=== PATIENT | male | born 1995 | race Caucasian/White ===

== ENCOUNTER 2016-10-10 13:20 | Emergency (ER) | payer MEDICAID ==
[2016-10-10] MEDS ORDERED: OXYCODONE-ACETAMINOPHEN 5-325 MG TABLET PO ONE (14:02)
--- NOTE | 2016-10-10 14:04 | ER Document Report ---
ED Medical Screen (RME) - General Chief Complaint: Cat Bite Stated Complaint: CAT BITE Notes: 21-year-old male tried to break up to straight cat's that were fighting last night got bit on his right hand. There are puncture wounds over the dorsal first webspace and dorsal first MCP joint. There are also superficial lacerations on the volar ulnar aspect of the base of the thumb. The hand at the punctures is swollen, red and painful. Reports his tetanus status was updated in 2013. I have greeted and performed a rapid initial assessment of this patient. A comprehensive ED assessment and evaluation of the patient, analysis of test results and completion of the medical decision making process will be conducted by additional ED providers. TRAVEL OUTSIDE OF THE [place] IN LAST 30 DAYS: No - Related Data Allergies/Adverse Reactions: cephalexin monohydrate [From Keflex] Allergy (Intermediate, Verified 10/10/16 13 :33) Hives clindamycin HCl [From Cleocin] Allergy (Intermediate, Verified 10/10/16 13:33) Hives clindamycin palmitate HCl [From Cleocin] Allergy (Intermediate, Verified 13:33) Hives clindamycin phosphate [From Cleocin] Allergy (Intermediate, Verified 10/10/16 13 :33) Hives hydromorphone HCl [From Dilaudid] Allergy (Verified 10/10/16 13:33) Home Medications: Current Home Medications Topiramate [Topiramate] 150 mg PO QHS 10/10/16 [History] Ziprasidone HCl [Geodon] 240 mg PO QHS 10/10/16 [History] Past Medical History - Past Medical History Cardiac Medical History: Denies: Hx Coronary Artery Disease, Hx Heart Attack, Hx Hypertension Pulmonary Medical History: Reports: Hx Asthma - INHALER ALBUTEROL Denies: Hx Bronchitis, Hx COPD, Hx Pneumonia Neurological Medical History: Reports: Hx Migraine. Denies: Hx Cerebrovascular Accident, Hx Seizures Renal/ Medical History: Denies: Hx Peritoneal Dialysis Musculoskeltal Medical History: Denies Hx Arthritis Psychiatric Medical History: Reports: Hx Attention Deficit Hyperactivity Disorder, Hx Bipolar Disorder, Hx Depression Past Surgical History: Reports: Hx Thyroid Surgery - radioactive ablation - Immunizations Hx Diphtheria, Pertussis, Tetanus Vaccination: Yes Physical Exam - Vital signs Vitals: Temp Pulse Resp BP Pulse Ox 98.1 F 78 18 147/71 H 99 04/21/17 13:33 10/10/16 13:33 10/10/16 13:33 10/10/16 13:33 10/10/16 13:33 Course - Vital Signs Vital signs: Temp Pulse Resp BP Pulse Ox 98.1 F 78 18 147/71 H 99 10/10/16 13:33 10/10/16 13:33 10/10/16 13:33 10/10/16 13:33 10/10/16 13:33
[2016-10-10 14:25] LABS: ABSOLUTE BASOPHILS # (AUTO) 0.1 10^3/uL (0.0-0.2); ABSOLUTE EOSINOPHILS # (AUTO) 0.1 10^3/uL (0.0-0.6); ABSOLUTE MONOCYTES (AUTO) 0.8 10^3/uL (0.1-1.4); ABSOLUTE NEUT (AUTO) 10.1 10^3/uL (1.7-8.2); BASOPHILS % (AUTO) 0.4 % (0-2); EOSINOPHILS % (AUTO) 0.8 % (0-6); HEMATOCRIT 41.3 % (37.9-51.0); HGB HCT DIFFERENCE 0.7; LYMPHOCYTES % (AUTO) 15.5 % (13-45); MEAN CORPUSCULAR HEMOGLOBIN 28.3 pg (27.0-33.4); MEAN CORPUSCULAR VOLUME 83 fl (80-97); MONOCYTES % (AUTO) 5.9 % (3-13); RED BLOOD COUNT 4.97 10^6/uL (4.35-5.55); RED CELL DISTRIBUTION WIDTH 13.6 % (11.5-14.0); SEGMENTED NEUTROPHILS % (AUTO) 77.4 % (42-78)
[2016-10-10] MEDS ORDERED: AMPICILLIN SOD/SULBACTAM 3 GM VIAL IV ONE (15:16)
--- NOTE | 2016-10-10 15:31 | ER Document Report ---
ED Animal Bite <ROSENDA DIAZ - Last Filed: 10/10/16 18:39> - General Time seen by provider: 15:25 Mode of Arrival: Ambulatory Information source: Patient TRAVEL OUTSIDE OF THE [place] IN LAST 30 DAYS: No - HPI Location of injury: Other - Right hand web between the first and second finger Severity of injury: Scratched, Bitten Onset: Yesterday Quality of pain: Pressure, Stabbing, Throbbing Pain Level: 5 Severity: Severe Context of attack: "Unprovoked" attack Type of animal: Cat Appearance of animal: Appeared well Animal's immunizations: Unknown Animal control form completed: Yes <PATIENCE CASTELLANOS - Last Filed: 10/10/16 19:08> - General Chief Complaint: Cat Bite Stated Complaint: CAT BITE Notes: 21-year-old male presents to ED for Bite to the wrap of his right hand between his thumb and his for second finger. He has a puncture wound over the dorsum of his webspace and the dorsal of the first MCP joint. He also has multiple cat scratches to the arm from and hand. The hand at the puncture site is very erythematous painful and swollen. He states his tetanus is up-to-date and he is requesting the rabies shots. (PATIENCE CASTELLANOS) - Related Data Allergies/Adverse Reactions: cephalexin monohydrate [From Keflex] Allergy (Intermediate, Verified 10/10/16 13 :33) Hives clindamycin HCl [From Cleocin] Allergy (Intermediate, Verified 10/10/16 13:33) Hives clindamycin palmitate HCl [From Cleocin] Allergy (Intermediate, Verified 13:33) Hives clindamycin phosphate [From Cleocin] Allergy (Intermediate, Verified 10/10/16 13 :33) Hives hydromorphone HCl [From Dilaudid] Allergy (Verified 10/10/16 13:33) Home Medications: Current Home Medications Topiramate [Topiramate] 150 mg PO QHS 10/10/16 [History] Ziprasidone HCl [Geodon] 240 mg PO QHS 10/10/16 [History] Past Medical History - General Information source: Patient - Social History Smoking Status: Never Smoker Chew tobacco use (# tins/day): Yes - one can a day Smoking Education Provided: Yes - less than 2 minutes Frequency of alcohol use: None Drug Abuse: None Occupation: none Lives with: Parents Family History: CAD, COPD, CVA, DM, Hyperlipidemia, Hypertension, Malignancy, Thyroid Disfunction Patient has suicidal ideation: No Patient has homicidal ideation: No - Past Medical History Cardiac Medical History: Reports: None Pulmonary Medical History: Reports: Hx Asthma - INHALER ALBUTEROL EENT Medical History: Reports: None Neurological Medical History: Reports: Hx Migraine Endocrine Medical History: Reports: None Renal/ Medical History: Reports: None Malignancy Medical History: Reports None GI Medical History: Reports: None Musculoskeltal Medical History: Reports None Skin Medical History: Reports Hx Cellulitis Psychiatric Medical History: Reports: Hx Attention Deficit Hyperactivity Disorder, Hx Bipolar Disorder, Hx Depression, Other - 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, explosive anger issues Traumatic Medical History: Reports: None Infectious Medical History: Reports: None Past Surgical History: Reports: Hx Cholecystectomy, Hx Thyroid Surgery - radioactive ablation - Immunizations Hx Diphtheria, Pertussis, Tetanus Vaccination: Yes Hx Pneumococcal Vaccination: 06/22/12 <PATIENCE CASTELLANOS - Last Filed: 10/10/16 19:08> Review of Systems - Review of Systems Constitutional: No symptoms reported EENT: No symptoms reported Cardiovascular: No symptoms reported Respiratory: No symptoms reported Gastrointestinal: No symptoms reported Genitourinary: No symptoms reported Male Genitourinary: No symptoms reported Musculoskeletal: No symptoms reported Skin: Other - Infected right hand, right thumb right web space and right second digit. Hematologic/Lymphatic: No symptoms reported Neurological/Psychological: No symptoms reported -: Yes All other systems reviewed and negative <PATIENCE CASTELLANOS - Last Filed: 10/10/16 19:08> Physical Exam - Vital signs Interpretation: Normal - General General appearance: Appears well, Alert - HEENT Head: Normocephalic, Atraumatic Eyes: Normal Pupils: PERRL - Respiratory Respiratory status: No respiratory distress Chest status: Nontender Breath sounds: Normal Chest palpation: Normal - Cardiovascular Rhythm: Regular Heart sounds: Normal auscultation Murmur: No - Abdominal Inspection: Normal Distension: No distension Bowel sounds: Normal Tenderness: Nontender Organomegaly: No organomegaly - Back Back: Normal, Nontender - Extremities General lower extremity: Normal inspection, Nontender, Normal color, Normal ROM , Normal temperature, Normal weight bearing. No: Sheyla's sign Hand: Tender, No evidence of human bite, No evidence of FB, Swelling, Other - A cat bite to the right hand webspace with inflammation, erythema, and swelling to the right first and second fingers of the webspace between these fingers as well as the dorsal and volar aspects of the hand proximal to these 2 fingers. - Neurological Neuro grossly intact: Yes Cognition: Normal Orientation: AAOx4 Jean [place] Coma Scale Eye Opening: Spontaneous [place] Coma Scale Verbal: Oriented Jean [place] Coma Scale Motor: Obeys Commands [place] Coma Scale Total: 15 Speech: Normal Motor strength normal: LUE, RUE, LLE, RLE Sensory: Normal - Psychological Associated symptoms: Normal affect, Normal mood - Skin Skin Temperature: Warm Skin Moisture: Dry Skin Color: Normal Skin irregularity: other - Cat bites right hand Character of irregularity: Erythematous Irregularity with: Swelling, Tenderness, Warmth, Inflammation, Weeping <PATIENCE CASTELLANOS - Last Filed: 10/10/16 19:08> - Vital signs Vitals: Temp Pulse Resp BP Pulse Ox 98.1 F 78 18 147/71 H 99 10/10/16 13:33 10/10/16 13:33 10/10/16 13:33 10/10/16 13:33 10/10/16 13:33 Course - Laboratory Result Diagrams: 10/10/16 14:12 <ROSENDA DIAZ - Last Filed: 10/10/16 18:39> - Laboratory Result Diagrams: 10/10/16 14:12 - Consults Dr. Yoo Time consulted: 15:38 <PATIENCE CASTELLANOS - Last Filed: 10/10/16 19:08> - Re-evaluation Re-evalutation: 10/10/16 18:39 I evaluated the patient shows significant erythema in the region of the right thenar eminence and the area around the first web space where there are Bites. I briefly used an ultrasound to identify there were no fluid collections noted. He has some decreased range of motion of the right thumb with opposition secondary to pain and swelling. Neurovascularly intact distally. (ROSENDA DIAZ) 10/10/16 18:01 Dr. Yoo was by to see the patient. He stated that the patient could go home on Augmentin as long as he follows up to for his may be injections on day 37 and 14 as has been ordered. He requested that if there is any increase in symptoms on any of these days to please let him know and he will follow up with the patient again. Mother and patient both verbalized understanding of the schedule for his rabies vaccinations. He was treated with Unasyn and Percocet in the emergency room and will be discharged home with a prescription for Augmentin and Percocet. (PATIENCE CASTELLANOS) - Vital Signs Vital signs: Temp Pulse Resp BP Pulse Ox 98.1 F 78 18 147/71 H 99 10/10/16 13:33 10/10/16 13:33 10/10/16 13:33 10/10/16 13:33 10/10/16 13:33 - Laboratory Laboratory results interpreted by me: 10/10/16 14:12 WBC 13.0 H Absolute Neutrophils 10.1 H - Consults Dr. Yoo Reason for consultation: 10/10/16 15:38 A cat bite to the right hand webspace with inflammation or erythema and swelling to the right first and second fingers of the webspace between these fingers as well as the dorsal and volar aspects of the hand proximal to these 2 fingers. (PATIENCE CASTELLANOS) Discharge <ROSENDA DIAZ - Last Filed: 10/10/16 18:39> <PATIENCE CASTELLANOS - Last Filed: 10/10/16 19:08> - Discharge Clinical Impression: Cellulitis of right hand Cat bite of right hand Qualifiers: Encounter type: initial encounter Qualified Code(s): S61.451A - Open bite of right hand, initial encounter Additional Instructions: Animal Bites Animal bites are often heavily contaminated with bacteria. In spite of thorough cleansing and proper treatment, these wounds frequently become infected. Bite wounds of the hands are especially prone to complications. Bites are dressed, if possible. Large wounds may require suturing after internal cleansing. Because of infection risk, some large wounds must remain unstitched. Your doctor is trained to advise you on the best treatment for your bite. Call the doctor at once if the wound becomes red, swollen, warm, increasingly painful, or if it begins to drain. Danger signs also include red streaks up the involved extremity, swollen glands in the groin or under the arm , or fever and chills. The risk of rabies from domestic animals is very low. Bats, sick animals, and wild animals may expose you to rabies. The physician, or the health department, will inform you if you will need to receive the rabies vaccine. CELLULITIS: You have an infection of your skin and underlying soft tissues called cellulitis. This is due to bacteria, which can enter through any break in the skin, or even through an irritated hair follicle. Untreated, cellulitis will usually worsen. Antibiotics are required. Usually, warm packs or warm soaks, and elevation of the infected area are recommended. You should start getting better within 24 to 36 hours. Most infections respond quickly to the right medication. Follow-up care is important, however, to check for abscess (boil) formation, unsuspected foreign body, or resistant infection. If you develop fever, chills, or if the area of infection is becoming rapidly more swollen or painful, call the doctor at once. Augmentin Augmentin is a mixture of amoxicillin and clavulanate. Amoxicillin is a member of the penicillin family. It covers the germs likely to cause ear, bronchial, and urinary infections better than plain penicillin. The addition of clavulanate allows it to cover staph infections of the skin, as well as resistant cases of ear and sinus infections. Your physician has chosen Augmentin for you because of the special nature of your situation. Augmentin is best taken with meals. Nausea after taking the medication is rare, but can occur. Diarrhea can occur, particularly in small children. Vaginal yeast infections, and oral thrush in infants are also common. Contact your physician if these problems occur. Allergy to penicillins is common. If you have had an allergic reaction to any drug of the penicillin family, you should never take any other penicillin. Notify your doctor at once if you develop hives, shortness of breath, swelling, or faintness. Rabies Prophyllaxis Rabies immunization can prevent infection with the rabies virus. This virus is always fatal if it reaches the nervous system. Exposure to an infected animal's saliva requires a series of shots. If you're already immunized, you may need only a booster shot. It's critical for you to follow the exact schedule of immunizations. After the first shot, we give repeat doses in 3 days, 7 days, 14 days, and 28 days. The repeat doses can also be given through the Health Department or by special arrangement with your doctor. Ibuprofen or acetaminophen can be used for aching and swelling at the injection site. Call the doctor or return if you develop increasing pain, fever , chills, or spreading redness, or if you become short of breath or faint. SOAP CLEANSING: Gently wash the wound daily using a mild soap (like Ivory, Phisoderm, Neutrogena). Use warm water, rubbing gently until all debris, ooze, and crusting have been washed from the wound. Allow to dry briefly (about 10 minutes) after cleaning. Repeat this cleansing at least three times a day for the first two days and then once or twice a day. ANTIBIOTIC OINTMENT PROTECTION: Your wounds are such that dressing them is not practical or optional. After cleansing, you should apply a thin coating of antibiotic ointment ( Bacitracin, not Neosporin) to the wounds at least three times daily. This lessens infection risk, and may decrease the amount of scarring. Use a q-tip or dull butter knife, not your finger, to apply this ointment. Any debris or ooze which builds up in the ointment should be gently rubbed off with a sterile gauze pad. Harder crusting may need to be gently scrubbed off with a clean wash cloth with soap and warm water, perhaps applying a warm, wet wash cloth to the wound for ten minutes first. Development of redness, severe itching, or blistering may mean allergy to the ointment. See the doctor. ORAL NARCOTIC MEDICATION: You have been given a prescription for pain control. This medication is a narcotic. It's best taken with food, as nausea can result if taken on an empty stomach. Don't operate machinery or drive within six hours of taking this medication. Do not combine this medicine with alcohol, or with any medication which can cause sedation (such as cold tablets or sleeping pills) unless you get permission from the physician. Narcotics tend to cause constipation. If possible, drink plenty of fluids and eat a diet high in fiber and fruits. Please be aware that prescription narcotics also have the potential for abuse. People become addicted to these medications because of the general sense of wellbeing that they induce. This feeling along with a significant reduction in tension, anxiety, and aggression provides a stimulating seductive quality to these drugs. Once your pain is under control, we encourage you to discard your unused narcotics. FOLLOW-UP CARE: If you have been referred to a physician for follow-up care, call the physician s office for an appointment as you were instructed or within the next two days. If you experience worsening or a significant change in your symptoms, notify the physician immediately or return to the Emergency Department at any time for re-evaluation. Prescriptions: Oxycodone HCl/Acetaminophen [Percocet 5-325 mg Tablet] 1 tab PO Q6HP PRN #15 tablet PRN Reason: Amox Tr/Potassium Clavulanate [Augmentin 875-125 Tablet] 1 tab PO BID 10 Days Forms: Elevated Blood Pressure Referrals: DONNIE NEWTON MD [Primary Care Provider] - Follow up as needed MARZENA YOO DO [ACTIVE STAFF] - Follow up as needed
[2016-10-10] MEDS ORDERED: MORPHINE SULFATE 10 MG/ML INJ IV ONE (15:50)
--- NOTE | 2016-10-10 17:49 | PDOC CONSULTATION ---
History of Present Illness Admission Date/PCP: DONNIE NEWTON MD History of Present Illness: STEFF MONTANO is a 21 year old male who was breaking up a stray cat fight when he inadvertently got bitten on the right hand yesterday evening. Over the past 12+ hours patient has noticed increasing redness pain and swelling. Denies fever chills or sweats. Denies numbness or tingling. No rabies history and vaccine history of the animals is unknown. Current pain 11/29. Past Medical History Cardiac Medical History: Reports: None Denies: Coronary Artery Disease, Myocardial Infarction, Hypertension Pulmonary Medical History: Reports: Asthma - INHALER ALBUTEROL Denies: Bronchitis, Chronic Obstructive Pulmonary Disease (COPD), Pneumonia EENT Medical History: Reports: None Neurological Medical History: Reports: Migraine Denies: Seizures Endocrine Medical History: Reports: None Renal/ Medical History: Reports: None Malignancy Medical History: Reports: None GI Medical History: Reports: None Musculoskeltal Medical History: Reports: None Denies: Arthritis Psychiatric Medical History: Reports: Attention Deficit Hyperactivity Disorder, Bipolar Disorder, Depression, Other - 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, explosive anger issues Traumatic Medical History: Reports: None Hematology: Denies: Anemia Infectious Medical History: Reports: None Past Surgical History Past Surgical History: Reports: Cholecystectomy Social History Lives with: Parents Smoking Status: Never Smoker Frequency of Alcohol Use: None Hx Recreational Drug Use: No Hx Prescription Drug Abuse: No Family History Family History: CAD, COPD, CVA, DM, Hyperlipidemia, Hypertension, Malignancy, Thyroid Disfunction Parental Family History Reviewed: No Children Family History Reviewed: No Sibling(s) Family History Reviewed.: No Medication/Allergy Home Medications: Topiramate [Topiramate] 150 mg PO QHS 10/10/16 Ziprasidone HCl [Geodon] 240 mg PO QHS 10/10/16 Allergies/Adverse Reactions: cephalexin monohydrate [From Keflex] Allergy (Intermediate, Verified 10/10/16 13 :33) Hives clindamycin HCl [From Cleocin] Allergy (Intermediate, Verified 10/10/16 13:33) Hives clindamycin palmitate HCl [From Cleocin] Allergy (Intermediate, Verified 13:33) Hives clindamycin phosphate [From Cleocin] Allergy (Intermediate, Verified 10/10/16 13 :33) Hives hydromorphone HCl [From Dilaudid] Allergy (Verified 10/10/16 13:33) Review of Systems Constitutional: ABSENT: chills, fever(s), headache(s), weight gain, weight loss Eyes: ABSENT: visual disturbances Ears: ABSENT: hearing changes Cardiovascular: ABSENT: chest pain, dyspnea on exertion, edema, orthropnea, palpitations Respiratory: ABSENT: cough, hemoptysis Gastrointestinal: ABSENT: abdominal pain, constipation, diarrhea, hematemesis, hematochezia, nausea, vomiting Genitourinary: ABSENT: dysuria, hematuria Musculoskeletal: PRESENT: as per HPI Integumentary: ABSENT: rash, wounds Neurological: ABSENT: abnormal gait, abnormal speech, confusion, dizziness, focal weakness, syncope Psychiatric: ABSENT: anxiety, depression, homidical ideation, suicidal ideation Endocrine: ABSENT: cold intolerance, heat intolerance, menstrual abnormalities, polydipsia, polyuria Hematologic/Lymphatic: ABSENT: easy bleeding, easy bruising, lymphadenopathy Physical Exam Vital Signs: Temp Pulse Resp BP Pulse Ox 98.1 F 78 18 147/71 H 99 10/10/16 13:33 10/10/16 13:33 10/10/16 13:33 10/10/16 13:33 10/10/16 13:33 Intake & Output 10/09/16 10/10/16 10/11/16 06:59 06:59 06:59 Weight 120.7 kg General appearance: PRESENT: no acute distress, well-developed, well-nourished Head exam: PRESENT: atraumatic, normocephalic Eye exam: PRESENT: conjunctiva pink, EOMI, PERRLA. ABSENT: scleral icterus Ear exam: PRESENT: normal external ear exam Mouth exam: PRESENT: moist, tongue midline, other Teeth exam: PRESENT: poor dentation Neck exam: PRESENT: full ROM. ABSENT: carotid bruit, JVD, lymphadenopathy, thyromegaly Cardiovascular exam: PRESENT: RRR. ABSENT: diastolic murmur, rubs, systolic murmur Pulses: PRESENT: normal dorsalis pedis pul, +2 pedal pulses bilateral Vascular exam: PRESENT: normal capillary refill GI/Abdominal exam: PRESENT: normal bowel sounds, soft. ABSENT: distended, guarding, mass, organolmegaly, rebound, tenderness Rectal exam: PRESENT: deferred Musculoskeletal exam: PRESENT: other - Right hand: Small puncture wound along the volar aspect of the thumb at the level of the A1 tk second puncture wound at the first webspace. Appropriate tenderness to palpation with erythema extending approximately 3 cm in a dorsal direction. Mild erythema along the thenar eminence. No palpable fluctuance to suggest deep thenar abscess. No pain with passive stretch of the thumb. No tenderness along the flexor sheath. No sensory deficits. Cap refill less than 2 seconds. Neurological exam: PRESENT: alert, awake, oriented to person, oriented to place , oriented to time, oriented to situation, CN II-XII grossly intact. ABSENT: motor sensory deficit Psychiatric exam: PRESENT: appropriate affect, normal mood. ABSENT: homicidal ideation, suicidal ideation Skin exam: PRESENT: dry, intact, warm. ABSENT: cyanosis, rash Results Laboratory Results: 10/10/16 14:12 10/10/16 14:12 WBC 13.0 H RBC 4.97 Hgb 14.0 Hct 41.3 MCV 83 MCH 28.3 MCHC 34.0 RDW 13.6 Plt Count 296 Seg Neutrophils % 77.4 Lymphocytes % 15.5 Monocytes % 5.9 Eosinophils % 0.8 Basophils % 0.4 Absolute Neutrophils 10.1 H Absolute Lymphocytes 2.0 Absolute Monocytes 0.8 Absolute Eosinophils 0.1 Absolute Basophils 0.1 Assessment & Plan - Diagnosis (2) Cat bite of right hand Qualifiers: Encounter type: initial encounter Qualified Code(s): S61.451A - Open bite of right hand, initial encounter; W55.01XA - Bitten by cat, initial encounter Is this a current diagnosis for this admission?: YesPlan: On examination patient has findings consistent with cellulitis. There is no evidence of thenar abscess or deep abscess. Also there is no evidence of flexor tenosynovitis of the thumb. However given the contaminated nature of There certainly possibility of worsening that this point since the patient has presented within 24 hours I feel it is reasonable to treat him with one dose of IV Unasyn and Augmentin at home. If he notices worsening he should return to emergency room immediately. Patient is getting regular follow-up for rabies vaccination and will be checked for worsening and improvement during his follow- up visits.
[2016-10-10] MEDS ORDERED: RABIES VACCINE (PCEC)/PF 2.5 UNIT/1 ML KIT IM ONE (18:00)
[2016-10-10] MEDS ORDERED: RABIES IMMUNE GLOBULIN INJ/PF 300 UNIT/2 ML SDV IM ONE (18:30)
[2016-10-10 19:23] VITALS: BP 142/87
== END 2016-10-10 18:40 | disposition home or self-care (01) ==
LOC: ER 13:20
DX: S61.451A Open bite of right hand, initial encounter (principal); L03.113 Cellulitis of right upper limb; W55.01XA Bitten by cat, initial encounter; F17.220 Nicotine dependence, chewing tobacco, uncomplicated; Z20.3 Contact with and (suspected) exposure to rabies; Z88.3 Allergy status to other anti-infective agents; Z90.49 Acquired absence of other specified parts of digestive tract
CPT/HCPCS: 99283; 96372; 90471; 96375; 96365; 36415; 87040; 85025; 90675; 90376; J0295; J2270

== ENCOUNTER 2016-10-11 13:08 | Inpatient (IN) | payer MEDICAID ==
[2016-10-11] MEDS ORDERED: OXYCODONE-ACETAMINOPHEN 5-325 MG TABLET PO ONE ×2 (15:20→19:23)
--- NOTE | 2016-10-11 15:27 | ER Document Report ---
ED General - General Mode of Arrival: Ambulatory Information source: Patient, Parent TRAVEL OUTSIDE OF THE [place] IN LAST 30 DAYS: No - HPI Onset: Yesterday Onset/Duration: Persistent Quality of pain: Achy Severity: Severe Pain Level: 5 Associated symptoms: None Exacerbated by: Denies Relieved by: Denies Similar symptoms previously: Yes Recently seen / treated by doctor: Yes <SUJATA MCCAULEY - Last Filed: 10/11/16 19:24> <ROSENDA DIAZ - Last Filed: 10/11/16 19:34> - General Chief Complaint: Cat Bite Stated Complaint: CAT BITE RIGHT HAND SWELLING Notes: Patient presents today with complaints of right hand pain. Patient was evaluated yesterday in the emergency department post cat bite. He was trying to break up a cat fight. He was evaluated and treated with antibiotics while in the ED, he was also evaluated by Dr. Yoo. He reports he's been taking the antibiotics that he was prescribed. Today the right hand became more swollen painful and warm to touch. He denies fever vomiting diarrhea. (SUJATA MCCAULEY) - Related Data Allergies/Adverse Reactions: cephalexin monohydrate [From Keflex] Allergy (Intermediate, Verified 10/10/16 13 :33) Hives clindamycin HCl [From Cleocin] Allergy (Intermediate, Verified 10/10/16 13:33) Hives clindamycin palmitate HCl [From Cleocin] Allergy (Intermediate, Verified 13:33) Hives clindamycin phosphate [From Cleocin] Allergy (Intermediate, Verified 10/10/16 13 :33) Hives hydromorphone HCl [From Dilaudid] Allergy (Verified 10/10/16 13:33) Past Medical History - General Information source: Patient, Parent - Social History Smoking Status: Unknown if Ever Smoked Cigarette use (# per day): No Frequency of alcohol use: None Drug Abuse: None Lives with: Family Family History: CAD, COPD, CVA, DM, Hyperlipidemia, Hypertension, Malignancy, Thyroid Disfunction Patient has suicidal ideation: No Patient has homicidal ideation: No - Past Medical History Cardiac Medical History: Denies: Hx Coronary Artery Disease, Hx Heart Attack, Hx Hypertension Pulmonary Medical History: Reports: Hx Asthma - INHALER ALBUTEROL Denies: Hx Bronchitis, Hx COPD, Hx Pneumonia Neurological Medical History: Reports: Hx Migraine. Denies: Hx Cerebrovascular Accident, Hx Seizures Renal/ Medical History: Denies: Hx Peritoneal Dialysis Musculoskeltal Medical History: Denies Hx Arthritis Skin Medical History: Reports Hx Cellulitis Psychiatric Medical History: Reports: Hx Attention Deficit Hyperactivity Disorder, Hx Bipolar Disorder, Hx Depression Past Surgical History: Reports: Hx Cholecystectomy, Hx Thyroid Surgery - radioactive ablation - Immunizations Hx Diphtheria, Pertussis, Tetanus Vaccination: Yes Hx Pneumococcal Vaccination: 06/22/12 <SUJTAA MCCAULEY - Last Filed: 10/11/16 19:24> Review of Systems <SUJATA MCCAULEY - Last Filed: 10/11/16 19:24> <ROSENDA DIAZ - Last Filed: 10/11/16 19:34> - Review of Systems Notes: Review HPI for review of systems., All other systems negative (SUJATA MCCAULEY) Physical Exam <SUJATA MCCAULEY - Last Filed: 10/11/16 19:24> <ROSENDA DIAZ - Last Filed: 10/11/16 19:34> - Vital signs Vitals: Temp Pulse Resp BP Pulse Ox 98.3 F 80 16 147/80 H 99 10/11/16 13:32 10/11/16 13:32 10/11/16 13:32 10/11/16 13:32 10/11/16 13:32 - Notes Notes: PHYSICAL EXAMINATION: GENERAL: Nontoxic looking HEAD: Atraumatic, normocephalic. EYES: Pupils equal round extraocular movements intact, sclera anicteric, conjunctiva are normal. ENT: nares patent, Moist mucous membranes. NECK: Normal range of motion, supple without lymphadenopathy LUNGS: CTAB and equal. No wheezes rales or rhonchi. HEART: Regular rate ABDOMEN: Soft, no tenderness. No guarding, no rebound EXTREMITIES: Normal range of motion, no pitting edema. right hand dorsally swollen with warmth, palm with erythema from thumb to half of palm. brisk cap refill NEUROLOGICAL: Cranial nerves grossly intact. Normal sensory/motor exams. PSYCH: Normal mood, normal affect. SKIN: Warm, Dry, normal turgor, no rashes or lesions noted (SUJATA MCCAULEY) Course - Laboratory Result Diagrams: 10/11/16 16:19 10/11/16 16:19 - Diagnostic Test Radiology reviewed: Image reviewed, Reports reviewed - Diagnostic report text EXAM DESCRIPTION: MRI RT UPPER EXTREMITY COMBO COMPLETED DATE/TIME: 2016 5:31 pm REASON FOR STUDY: 9-cat bite, eval abscess COMPARISON: None. TECHNIQUE: Multiplanar imaging of the right hand to include T1-weighted, postcontrast T1-weighted , and T2-weighted images. CONTRAST TYPE AND DOSE: 20 mL Prohance. RENAL FUNCTION: GFR > 60. LIMITATIONS: None. FINDINGS: BONE MARROW: No marrow signal alteration. Specifically no marrow replacement or marrow edema. No evidence for osteomyelitis. No cortical break through. SOFT TISSUES: There is diffuse subcutaneous edema involving the dorsal aspect of the right hand most prominent at the level of the 4th metacarpal head where there is a 9 x 6 x 9 mm rim enhancing fluid collection best seen on series 14, image 17 compatible with a small abscess. OTHER: No other significant finding. TECHNICAL DOCUMENTATION: JOB ID: [id number]- All Rights Reserved MRI/MRI RT UPPER EXTREMITY COMBO IMPRESSION: MR FINDINGS COMPATIBLE WITH CELLULITIS WITH 9 MM SOFT TISSUE ABSCESS COULD DORSAL TO THE 4TH METACARPAL HEAD. NO ACUTE OSSEOUS ABNORMALITY <SUJATA MCCAULEY - Last Filed: 10/11/16 19:24> - Laboratory Result Diagrams: 10/11/16 16:19 10/11/16 16:19 <ROSENDA DIAZ - Last Filed: 10/11/16 19:34> - Re-evaluation Re-evalutation: 10/11/16 15:24 Dr. Yoo on the phone. I updated him on patient's complaints return for increased swelling and pain. He advised MRI with contrast of the hand to evaluate for abscess. 10/11/16 17:54 Dr. Yoo contacted with results of MRI. He will be in to see the patient. Patient and his family updated. 10/11/16 19:21 Dr. yoo here patient will be admitted. Patient and family are aware. (SUJATA MCCAULEY) - Vital Signs Vital signs: Temp Pulse Resp BP Pulse Ox 98.2 F 80 16 152/85 H 99 10/11/16 17:58 10/11/16 17:58 10/11/16 17:58 10/11/16 17:58 10/11/16 17:58 - Laboratory Laboratory results interpreted by me: 10/11/16 16:19 Hgb 13.4 L Discharge <SUJATA MCCAULEY - Last Filed: 10/11/16 19:24> - Discharge Admitting Provider: Dr. Yoo Unit Admitted: Surgical Floor <ROSENDA DIAZ - Last Filed: 10/11/16 19:34> - Discharge Clinical Impression: Right hand pain, Abscess of hand Cat bite Qualifiers: Encounter type: subsequent encounter Qualified Code(s): W55.01XD - Bitten by cat, subsequent encounter Condition: Stable Disposition: ADMITTED INPATIENT Instructions: Animal Bites ([facility]) Additional Instructions: *You have been treated for hand pain and swelling post cat bite *Continue to take medication as prescribed *Monitor the site for signs of infection such as increasing pain, redness, swelling, warmth *Keep the wounds clean *Follow up with Dr Corley this week for a recheck *Follow up for rabies vaccine as scheduled *Return to ED for signs of increasing infection, worsening condition, changes, needs
[2016-10-11 16:34] LABS: ABSOLUTE BASOPHILS # (AUTO) 0.1 10^3/uL (0.0-0.2); ABSOLUTE EOSINOPHILS # (AUTO) 0.2 10^3/uL (0.0-0.6); ABSOLUTE LYMPHOCYTES (AUTO) 2.2 10^3/uL (0.5-4.7); ABSOLUTE MONOCYTES (AUTO) 0.7 10^3/uL (0.1-1.4); ABSOLUTE NEUT (AUTO) 5.9 10^3/uL (1.7-8.2); BASOPHILS % (AUTO) 0.7 % (0-2); EOSINOPHILS % (AUTO) 2.4 % (0-6); HEMATOCRIT 39.7 % (37.9-51.0); HEMOGLOBIN 13.4 g/dL (13.5-17.0); HGB HCT DIFFERENCE 0.5; LYMPHOCYTES % (AUTO) 24.3 % (13-45); MEAN CORPUSCULAR HEMOGLOBIN 28.1 pg (27.0-33.4); MEAN CORPUSCULAR HGB CONC 33.7 g/dL (32.0-36.0); MEAN CORPUSCULAR VOLUME 84 fl (80-97); MONOCYTES % (AUTO) 7.2 % (3-13); RED BLOOD COUNT 4.76 10^6/uL (4.35-5.55); RED CELL DISTRIBUTION WIDTH 13.4 % (11.5-14.0); SEGMENTED NEUTROPHILS % (AUTO) 65.4 % (42-78)
[2016-10-11 16:49] LABS: ALANINE AMINOTRANSFERASE 54 U/L (21-72); ALBUMIN 4.5 g/dL (3.5-5.0); ALKALINE PHOSPHATASE 106 U/L (38-126); ANION GAP 16 (5-19); ASPARTATE AMINO TRANSFERASE 38 U/L (17-59); BILIRUBIN,DIRECT 0.2 mg/dL (0.0-0.4); BILIRUBIN,TOTAL 0.8 mg/dL (0.2-1.3); BLOOD UREA NITROGEN 14 mg/dL (7-20); CALCIUM 9.5 mg/dL (8.4-10.2); CARBON DIOXIDE 23 mmol/L (22-30); CHLORIDE 105 mmol/L (98-107); CREATININE RESULT 1.17 mg/dL (0.52-1.25); GLUCOSE 100 mg/dL (75-110); POTASSIUM 4.4 mmol/L (3.6-5.0); SODIUM 143.8 mmol/L (137-145); TOTAL PROTEIN 7.1 g/dL (6.3-8.2)
[2016-10-11] MEDS ORDERED: AMPICILLIN SOD/SULBACTAM 3 GM VIAL IV ONE (19:20)
[2016-10-11] MEDS ORDERED: MORPHINE SULFATE 10 MG/ML INJ IV PRN (20:06)
[2016-10-11] MEDS ORDERED: ONDANSETRON HCL INJ/PF 4 MG/2 ML SDV IV PRN (20:06)
--- NOTE | 2016-10-11 20:14 | PDOC H&P ---
History of Present Illness Admission Date/PCP: 10/11/16 19:43 History of Present Illness: STEFF MONTANO is a 21 year old male who sustained a cat bite to his right hand on 10/09/16. He was seen and evaluated in the emergency room yesterday and was started on IV Unasyn and sent home on Augmentin. At that time there is no sign or symptoms of abscess he returned emergency room 24 hours later with increasing pain and swelling. He states the pain is more along the back of his hand. Denies fever chills or sweats. Denies numbness or tingling. Has been taking Augmentin as directed. Pain 11/29. Past Medical History Cardiac Medical History: Denies: Coronary Artery Disease, Myocardial Infarction, Hypertension Pulmonary Medical History: Reports: Asthma - INHALER ALBUTEROL Denies: Bronchitis, Chronic Obstructive Pulmonary Disease (COPD), Pneumonia Neurological Medical History: Reports: Migraine Denies: Seizures Musculoskeltal Medical History: Denies: Arthritis Psychiatric Medical History: Reports: Attention Deficit Hyperactivity Disorder, Bipolar Disorder, Depression Hematology: Denies: Anemia Past Surgical History Past Surgical History: Reports: Cholecystectomy Social History Lives with: Family Smoking Status: Current Every Day Smoker - Chewing tobacco Frequency of Alcohol Use: None Hx Recreational Drug Use: No Hx Prescription Drug Abuse: No Family History Family History: CAD, COPD, CVA, DM, Hyperlipidemia, Hypertension, Malignancy, Thyroid Disfunction Parental Family History Reviewed: Yes Children Family History Reviewed: Yes Sibling(s) Family History Reviewed.: No Medication/Allergy Home Medications: Amox Tr/Potassium Clavulanate [Augmentin 875-125 Tablet] 1 tab PO BID 10 Days Oxycodone HCl/Acetaminophen [Percocet 5-325 mg Tablet] 1 tab PO Q6HP PRN #15 tablet 10/10/16 Topiramate [Topiramate] 150 mg PO QHS 10/10/16 Ziprasidone HCl [Geodon] 240 mg PO QHS 10/10/16 Allergies/Adverse Reactions: cephalexin monohydrate [From Keflex] Allergy (Intermediate, Verified 10/10/16 13 :33) Hives clindamycin HCl [From Cleocin] Allergy (Intermediate, Verified 10/10/16 13:33) Hives clindamycin palmitate HCl [From Cleocin] Allergy (Intermediate, Verified 13:33) Hives clindamycin phosphate [From Cleocin] Allergy (Intermediate, Verified 10/10/16 13 :33) Hives hydromorphone HCl [From Dilaudid] Allergy (Verified 10/10/16 13:33) Review of Systems Constitutional: ABSENT: chills, fever(s), headache(s), weight gain, weight loss Eyes: ABSENT: visual disturbances Ears: ABSENT: hearing changes Cardiovascular: ABSENT: chest pain, dyspnea on exertion, edema, orthropnea, palpitations Respiratory: ABSENT: cough, hemoptysis Gastrointestinal: ABSENT: abdominal pain, constipation, diarrhea, hematemesis, hematochezia, nausea, vomiting Genitourinary: ABSENT: dysuria, hematuria Musculoskeletal: PRESENT: as per HPI Integumentary: ABSENT: rash, wounds Neurological: ABSENT: abnormal gait, abnormal speech, confusion, dizziness, focal weakness, syncope Psychiatric: ABSENT: anxiety, depression, homidical ideation, suicidal ideation Endocrine: ABSENT: cold intolerance, heat intolerance, menstrual abnormalities, polydipsia, polyuria Hematologic/Lymphatic: ABSENT: easy bleeding, easy bruising, lymphadenopathy Physical Exam Vital Signs: Temp Pulse Resp BP Pulse Ox 98.2 F 80 16 152/85 H 99 10/11/16 17:58 10/11/16 17:58 10/11/16 17:58 10/11/16 17:58 10/11/16 17:58 General appearance: PRESENT: no acute distress, well-developed, well-nourished Head exam: PRESENT: atraumatic, normocephalic Eye exam: PRESENT: conjunctiva pink, EOMI, PERRLA. ABSENT: scleral icterus Ear exam: PRESENT: normal external ear exam Mouth exam: PRESENT: moist, tongue midline Teeth exam: PRESENT: poor dentation Neck exam: PRESENT: full ROM. ABSENT: carotid bruit, JVD, lymphadenopathy, thyromegaly Respiratory exam: PRESENT: unlabored Cardiovascular exam: PRESENT: RRR. ABSENT: diastolic murmur, rubs, systolic murmur Pulses: PRESENT: normal dorsalis pedis pul Vascular exam: PRESENT: normal capillary refill GI/Abdominal exam: PRESENT: normal bowel sounds, soft. ABSENT: distended, guarding, mass, organolmegaly, rebound, tenderness Rectal exam: PRESENT: deferred Musculoskeletal exam: PRESENT: other - Right hand: Erythema and swelling dorsally along the hand and along first webspace. Maximal point tenderness on the thenar eminence. No tenderness along the flexor sheaths of all digits. Diffuse tenderness dorsally. No discernible palpable fluctuance or abscess appreciated. Patient able to make full composite fist. No pain with passive stretch. No tracking erythema. No tenderness along the dorsum of the wrist. Cap refill less than 2 seconds. Neurological exam: PRESENT: alert, awake, oriented to person, oriented to place , oriented to time, oriented to situation, CN II-XII grossly intact. ABSENT: motor sensory deficit Psychiatric exam: PRESENT: appropriate affect, normal mood. ABSENT: homicidal ideation, suicidal ideation Skin exam: PRESENT: dry, intact, warm. ABSENT: cyanosis, rash Results Impressions: Upper Extremity MRI 10/11/16 15:19 IMPRESSION: MR FINDINGS COMPATIBLE WITH CELLULITIS WITH 9 MM SOFT TISSUE ABSCESS COULD DORSAL TO THE 4TH METACARPAL HEAD. NO ACUTE OSSEOUS ABNORMALITY. Status: Image reviewed by me - I have reviewed patient's MRI which demonstrates diffuse swelling dorsally along the hand with question of abscess along the dorsum of the fourth metacarpal head. No thenar abscess appreciated. Assessment & Plan - Diagnosis (1) Cat bite of right hand Qualifiers: Encounter type: initial encounter Qualified Code(s): S61.451A - Open bite of right hand, initial encounter; W55.01XA - Bitten by cat, initial encounter (2) Cellulitis of right hand Is this a current diagnosis for this admission?: YesPlan: I have reviewed patient's MRI which demonstrates question of abscess along the dorsum of the fourth metacarpal however this is not the area where his bite wounds are. Patient's bite wound drawn the thenar eminence he does have diffuse tenderness but no maximal tenderness over this area of concerning abscess. There is no evidence of thenar abscess thus I have recommended observation patient fails to see improvement we will consider formal irrigation and debridement however I feel with appropriate antibiotics this will likely heal nonsurgically. I have consult the hospitalist for management of his rabies prophylactic treatment.
[2016-10-11] MEDS ORDERED: AMPICILLIN SOD/SULBACTAM 3 GM VIAL IV PRN (20:16)
[2016-10-11] MEDS ORDERED: AMPICILLIN SOD/SULBACTAM 3 GM VIAL ONE (22:20)
[2016-10-11] MEDS ORDERED: ZIPRASIDONE HCL 60 MG CAPSULE PO ONE (22:21)
[2016-10-11] MEDS: TOPIRAMATE 100 MG TABLET PO SCH (22:42)
[2016-10-11] MEDS: ZIPRASIDONE HCL 60 MG CAPSULE PO SCH (22:43)
[2016-10-11] MEDS: AMPICILLIN SODIUM/SULBACTAM NA 3 GM in NORMAL SALINE 100 ML IV SCH (23:10)
[2016-10-12] MEDS ORDERED: AMPICILLIN SOD/SULBACTAM 3 GM VIAL IV SCH
[2016-10-12] MEDS ORDERED: AMPICILLIN SOD/SULBACTAM 3 GM VIAL ONE (04:36)
[2016-10-12 04:44] LABS: ABSOLUTE BASOPHILS # (AUTO) 0.1 10^3/uL (0.0-0.2); ABSOLUTE EOSINOPHILS # (AUTO) 0.2 10^3/uL (0.0-0.6); ABSOLUTE LYMPHOCYTES (AUTO) 2.3 10^3/uL (0.5-4.7); ABSOLUTE MONOCYTES (AUTO) 0.5 10^3/uL (0.1-1.4); ABSOLUTE NEUT (AUTO) 4.7 10^3/uL (1.7-8.2); BASOPHILS % (AUTO) 0.8 % (0-2); EOSINOPHILS % (AUTO) 2.8 % (0-6); HEMATOCRIT 38.4 % (37.9-51.0); HEMOGLOBIN 13.2 g/dL (13.5-17.0); HGB HCT DIFFERENCE 1.2; LYMPHOCYTES % (AUTO) 30.1 % (13-45); MEAN CORPUSCULAR HEMOGLOBIN 28.6 pg (27.0-33.4); MEAN CORPUSCULAR HGB CONC 34.4 g/dL (32.0-36.0); MEAN CORPUSCULAR VOLUME 83 fl (80-97); MONOCYTES % (AUTO) 6.2 % (3-13); RED BLOOD COUNT 4.62 10^6/uL (4.35-5.55); RED CELL DISTRIBUTION WIDTH 13.5 % (11.5-14.0); SEGMENTED NEUTROPHILS % (AUTO) 60.1 % (42-78); WHITE BLOOD COUNT 7.8 10^3/uL (4.0-10.5)
[2016-10-12 06:09] LABS: ERYTHROCYTE SEDIMENTATION RATE 12 mm/hr (0-15)
[2016-10-12] MEDS: AMPICILLIN SODIUM/SULBACTAM NA 3 GM in NORMAL SALINE 100 ML IV SCH ×3 (06:12→18:17)
[2016-10-12] MEDS: OXYCODONE-ACETAMINOPHEN 5-325 MG TABLET PO PRN ×2 (07:43→21:44)
--- NOTE | 2016-10-12 10:23 | PDOC CONSULTATION ---
Consultation Consult Date: 10/12/16 Attending physician:: MARZENA ORELLANA Consult reason:: Rabies prophylaxis management History of Present Illness Admission Date/PCP: 10/11/16 20:02 Patient complains of: Hand pain History of Present Illness: STEFF MONTANO is a 21 year old male who sustained a cat bite to his right hand on 10/09/16. He was seen and evaluated in the emergency room on 07/12/2016, evaluated by Dr. Orellana, and was given IV Unasyn and sent home on Augmentin. The patient was given rabies vaccine and globulin and at that time there is no sign or symptoms of abscess he returned emergency room 24 hours later with increasing pain and swelling. He states the pain is more along the back of his hand. Denies fever chills or sweats. Denies numbness or tingling. Has been taking Augmentin as directed. Pain 11/29. ER provider discussed the case with Dr. Orellana with orthopedics and the patient was admitted to orthopedic service for evaluation and management. Given that the patient does have a medical history of bipolar disorder hospitals have been consult to help with medication management and rabies prophylaxis. Past Medical History Pulmonary Medical History: Reports: Asthma Neurological Medical History: Reports: Migraine Renal/ Medical History: Reports: Chronic Kidney Disease - Followed by Dr. Escobedo Psychiatric Medical History: Reports: Attention Deficit Hyperactivity Disorder, Bipolar Disorder, Depression, Other - Mild mental retardation, explosive anger Past Surgical History Past Surgical History: Reports: Cholecystectomy Social History Information Source: Patient Occupation: Unemployed Lives with: Family Smoking Status: Never Smoker Frequency of Alcohol Use: None Hx Recreational Drug Use: No Hx Prescription Drug Abuse: No - Advance Directive Resuscitation Status: Full Code Surrogate healthcare decision maker:: Mother Family History Family History: CAD, COPD, CVA, DM, Hyperlipidemia, Hypertension, Malignancy, Thyroid Disfunction Parental Family History Reviewed: Yes Children Family History Reviewed: NA Sibling(s) Family History Reviewed.: Yes Medication/Allergy Allergies/Adverse Reactions: cephalexin monohydrate [From Keflex] Allergy (Intermediate, Verified 10/10/16 13 :33) Hives clindamycin HCl [From Cleocin] Allergy (Intermediate, Verified 10/10/16 13:33) Hives clindamycin palmitate HCl [From Cleocin] Allergy (Intermediate, Verified 13:33) Hives clindamycin phosphate [From Cleocin] Allergy (Intermediate, Verified 10/10/16 13 :33) Hives hydromorphone HCl [From Dilaudid] Allergy (Verified 10/10/16 13:33) Review of Systems Constitutional: ABSENT: chills, fever(s), headache(s), weight gain, weight loss Eyes: ABSENT: visual disturbances Ears: ABSENT: hearing changes Cardiovascular: ABSENT: chest pain, dyspnea on exertion, edema, orthropnea, palpitations Respiratory: ABSENT: cough, hemoptysis Gastrointestinal: ABSENT: abdominal pain, constipation, diarrhea, hematemesis, hematochezia, nausea, vomiting Genitourinary: ABSENT: dysuria, hematuria Musculoskeletal: ABSENT: joint swelling Integumentary: PRESENT: erythema, wounds. ABSENT: rash Neurological: ABSENT: abnormal gait, abnormal speech, confusion, dizziness, focal weakness, syncope Psychiatric: ABSENT: anxiety, depression, homidical ideation, suicidal ideation Endocrine: ABSENT: cold intolerance, heat intolerance, polydipsia, polyuria Hematologic/Lymphatic: ABSENT: easy bleeding, easy bruising Physical Exam Vital Signs: Temp Pulse Resp BP Pulse Ox 97.8 F 65 18 133/80 H 100 10/12/16 00:35 10/12/16 07:28 10/12/16 07:28 10/12/16 07:28 10/12/16 07:28 Intake & Output 10/10/16 10/11/16 10/12/16 23:59 23:59 23:59 Intake Total 480 0 Balance 480 0 Weight 120.1 kg General appearance: PRESENT: no acute distress, cooperative, obese, well- developed Head exam: PRESENT: atraumatic, normocephalic Eye exam: PRESENT: conjunctiva pink, EOMI, PERRLA. ABSENT: scleral icterus Ear exam: PRESENT: normal external ear exam Mouth exam: PRESENT: moist, tongue midline Neck exam: ABSENT: carotid bruit, JVD, lymphadenopathy, thyromegaly Respiratory exam: PRESENT: clear to auscultation trinity, symmetrical, unlabored. ABSENT: rales, rhonchi, tachypnea, wheezes Cardiovascular exam: PRESENT: RRR. ABSENT: diastolic murmur, rubs, systolic murmur Pulses: PRESENT: normal dorsalis pedis pul Vascular exam: PRESENT: normal capillary refill GI/Abdominal exam: PRESENT: normal bowel sounds, soft. ABSENT: distended, guarding, mass, organolmegaly, rebound, tenderness Rectal exam: PRESENT: deferred Extremities exam: PRESENT: full ROM. ABSENT: calf tenderness, clubbing, pedal edema Neurological exam: PRESENT: alert, awake, oriented to person, oriented to place , oriented to time, oriented to situation, CN II-XII grossly intact. ABSENT: motor sensory deficit Psychiatric exam: PRESENT: normal mood, unusual affect. ABSENT: homicidal ideation, suicidal ideation Skin exam: PRESENT: abrasion - To the right hand and wrist, dry, erythema, intact, warm. ABSENT: cyanosis, rash Results Laboratory Results: 10/12/16 04:18 10/12/16 10/12/16 04:18 04:18 WBC 7.8 RBC 4.62 Hgb 13.2 L Hct 38.4 MCV 83 MCH 28.6 MCHC 34.4 RDW 13.5 Plt Count 254 Seg Neutrophils % 60.1 Lymphocytes % 30.1 Monocytes % 6.2 Eosinophils % 2.8 Basophils % 0.8 Absolute Neutrophils 4.7 Absolute Lymphocytes 2.3 Absolute Monocytes 0.5 Absolute Eosinophils 0.2 Absolute Basophils 0.1 C-Reactive Protein 38.4 H Impressions: Upper Extremity MRI 10/11/16 15:19 IMPRESSION: MR FINDINGS COMPATIBLE WITH CELLULITIS WITH 9 MM SOFT TISSUE ABSCESS COULD DORSAL TO THE 4TH METACARPAL HEAD. NO ACUTE OSSEOUS ABNORMALITY. Assessment & Plan - Diagnosis (1) Abscess of hand Is this a current diagnosis for this admission?: YesPlan: Management as per orthopedics agree with current antibiotic coverage (2) Cat bite Qualifiers: Encounter type: subsequent encounter Qualified Code(s): W55.01XD - Bitten by cat, subsequent encounter Is this a current diagnosis for this admission?: YesPlan: It's critical for you to follow the exact schedule of immunizations. After the first shot, we give repeat doses in 3 days, 7 days, 14 days, and 28 days. The repeat doses can also be given through the [facility] or by special arrangement with your doctor. Will administer dosage if the patient is here tomorrow if not this is been arranged through the ER. (3) Cat bite of right hand Qualifiers: Encounter type: initial encounter Qualified Code(s): S61.451A - Open bite of right hand, initial encounter; W55.01XA - Bitten by cat, initial encounter (4) Bipolar disorder Qualifiers: Active/Remission status: remission status unspecified Qualified Code (s): F31.9 - Bipolar disorder, unspecified Is this a current diagnosis for this admission?: YesPlan: The patient overall appears stable will continue the patient's home medications. - Time Time Spent: 30 to 50 Minutes Medications reviewed and adjusted accordingly: Yes Anticipated discharge: Home Within: within 24 hours, within 48 hours
--- NOTE | 2016-10-12 12:05 | PDOC PROGRESS REPORT ---
Subjective Progress Note for:: 10/12/16 Subjective:: Patient seen and evaluated on rounds today. He states his pain has improved since last evening. Pain is 3/5. Denies fever chills or sweats. Physical Exam Vital Signs: Temp Pulse Resp BP Pulse Ox 97.8 F 82 18 147/83 H 99 10/12/16 11:13 10/12/16 11:13 10/12/16 11:13 10/12/16 11:13 10/12/16 11:13 Intake & Output 10/11/16 10/12/16 10/13/16 06:59 06:59 06:59 Intake Total 480 Balance 480 Weight 120.1 kg General appearance: PRESENT: no acute distress, well-developed, well-nourished Head exam: PRESENT: atraumatic, normocephalic Eye exam: PRESENT: conjunctiva pink, EOMI, PERRLA. ABSENT: scleral icterus Ear exam: PRESENT: normal external ear exam Mouth exam: PRESENT: moist, tongue midline Neck exam: ABSENT: carotid bruit, JVD, lymphadenopathy, thyromegaly Respiratory exam: PRESENT: unlabored Cardiovascular exam: PRESENT: RRR. ABSENT: diastolic murmur, rubs, systolic murmur Pulses: PRESENT: normal radial pulses Vascular exam: PRESENT: normal capillary refill GI/Abdominal exam: PRESENT: soft. ABSENT: distended, guarding, mass, organolmegaly, rebound, tenderness Rectal exam: PRESENT: deferred Extremities exam: PRESENT: other - Right hand: Significant improvement in patient's dorsal erythema. No palpable fluctuance. No tenderness along the fourth metacarpal. Minimal tenderness along the thenar eminence. No tenderness on the flexor sheath. No tracking erythema. He will fist range of motion. No drainage from bite wounds. Neurological exam: PRESENT: alert, awake, oriented to person, oriented to place , oriented to time, oriented to situation, CN II-XII grossly intact. ABSENT: motor sensory deficit Psychiatric exam: PRESENT: flat affect, normal mood. ABSENT: homicidal ideation , suicidal ideation Skin exam: PRESENT: dry, intact, warm. ABSENT: cyanosis, rash Results Laboratory Results: 10/12/16 04:18 10/12/16 10/12/16 04:18 04:18 WBC 7.8 RBC 4.62 Hgb 13.2 L Hct 38.4 MCV 83 MCH 28.6 MCHC 34.4 RDW 13.5 Plt Count 254 Seg Neutrophils % 60.1 Lymphocytes % 30.1 Monocytes % 6.2 Eosinophils % 2.8 Basophils % 0.8 Absolute Neutrophils 4.7 Absolute Lymphocytes 2.3 Absolute Monocytes 0.5 Absolute Eosinophils 0.2 Absolute Basophils 0.1 C-Reactive Protein 38.4 H Impressions: Upper Extremity MRI 10/11/16 15:19 IMPRESSION: MR FINDINGS COMPATIBLE WITH CELLULITIS WITH 9 MM SOFT TISSUE ABSCESS COULD DORSAL TO THE 4TH METACARPAL HEAD. NO ACUTE OSSEOUS ABNORMALITY. Assessment & Plan - Diagnosis (1) Cat bite of right hand Qualifiers: Encounter type: initial encounter Qualified Code(s): S61.451A - Open bite of right hand, initial encounter; W55.01XA - Bitten by cat, initial encounter (2) Cellulitis of right hand Is this a current diagnosis for this admission?: YesPlan: Patient has seen significant improvement after 12 hours of IV antibiotics. We will continue him on IV Unasyn for another 24 hours with anticipation he will be stable for discharge to home tomorrow if he continues to show improvement. Appreciated hospitalist consultation concerning patient's rabies prophylaxis patient will receive his rabies prophylaxis tomorrow and then will follow-up in the emergency room as scheduled.
[2016-10-12] MEDS: ZIPRASIDONE HCL 60 MG CAPSULE PO SCH (21:44)
[2016-10-12] MEDS: TOPIRAMATE 100 MG TABLET PO SCH (21:44)
[2016-10-12] MEDS ORDERED: (PENDING PHARMACY ID) (Topiramate [Topamax] 150 MG) PO SCH (22:00)
[2016-10-12] MEDS ORDERED: TOPIRAMATE 100 MG TABLET PO SCH (22:00)
[2016-10-12] MEDS ORDERED: ZIPRASIDONE HCL PO SCH (22:00)
[2016-10-12] MEDS ORDERED: ZIPRASIDONE HCL 60 MG CAPSULE PO SCH (22:00)
[2016-10-13] MEDS: AMPICILLIN SODIUM/SULBACTAM NA 3 GM in NORMAL SALINE 100 ML IV SCH ×2 (03:17→06:49)
[2016-10-13] MEDS ORDERED: DIPH/PERTUSS(ACELL)/TETANUS VAC/PF 0.5 ML SYR (>=10YO) IM ONE (03:47)
[2016-10-13 04:46] LABS: ABSOLUTE EOSINOPHILS # (AUTO) 0.3 10^3/uL (0.0-0.6); ABSOLUTE LYMPHOCYTES (AUTO) 2.8 10^3/uL (0.5-4.7); ABSOLUTE MONOCYTES (AUTO) 0.5 10^3/uL (0.1-1.4); ABSOLUTE NEUT (AUTO) 5.6 10^3/uL (1.7-8.2); BASOPHILS % (AUTO) 0.5 % (0-2); EOSINOPHILS % (AUTO) 3.7 % (0-6); HEMATOCRIT 38.7 % (37.9-51.0); HEMOGLOBIN 13.3 g/dL (13.5-17.0); HGB HCT DIFFERENCE 1.2; LYMPHOCYTES % (AUTO) 30.7 % (13-45); MEAN CORPUSCULAR HEMOGLOBIN 28.6 pg (27.0-33.4); MEAN CORPUSCULAR HGB CONC 34.5 g/dL (32.0-36.0); MEAN CORPUSCULAR VOLUME 83 fl (80-97); RED BLOOD COUNT 4.66 10^6/uL (4.35-5.55); RED CELL DISTRIBUTION WIDTH 13.3 % (11.5-14.0); SEGMENTED NEUTROPHILS % (AUTO) 60.1 % (42-78); WHITE BLOOD COUNT 9.2 10^3/uL (4.0-10.5)
[2016-10-13] MEDS: OXYCODONE-ACETAMINOPHEN 5-325 MG TABLET PO PRN (09:39)
[2016-10-13] MEDS ORDERED: RABIES VACCINE (PCEC)/PF 2.5 UNIT/1 ML KIT IM SCH (10:00)
[2016-10-13 10:02] VITALS: BP 121/72
--- NOTE | 2016-10-13 12:21 | PDOC DISCHARGE SUMMARY ---
General - Admit/Disc Date/PCP Admission Date/Primary Care Provider: 10/11/16 20:02 Discharge Date: 10/13/16 - Discharge Diagnosis (2) Cellulitis of right hand Is this a current diagnosis for this admission?: Yes - Additional Information Resuscitation Status: Full Code Discharge Diet: As Tolerated Discharge Activity: Activity As Tolerated Home Medications: Topiramate [Topamax] 150 mg PO QHS 10/12/16 Ziprasidone HCl [Geodon] 240 mg PO QHS 10/12/16 Oxycodone HCl/Acetaminophen [Percocet 5-325 mg Tablet] 1 - 2 tab PO ASDIR PRN # 15 tablet 10/13/16 History of Present Illness History of Present Illness: STEFF MONTANO is a 21 year old male who sustained a cat bite to his right hand on 10/09/16. He was seen and evaluated in the emergency room yesterday and was started on IV Unasyn and sent home on Augmentin. At that time there is no sign or symptoms of abscess he returned emergency room 24 hours later with increasing pain and swelling. He states the pain is more along the back of his hand. Denies fever chills or sweats. Denies numbness or tingling. Has been taking Augmentin as directed. Pain 11/29. Hospital Course Hospital Course: patient was admitted to the hospital under the orthopedic service on 2016. mri was done prior to admission demonstrating extensive cellulitis with questionable superficial abscess. he did not undergo operative intervention and was treated conservatively with iv unasyn for approximately 36 hours and saw significant clinical improvement. on 10/13/2016 patient was deemed orthopedically stable for discharge to home. Physical Exam Vital Signs: Temp Pulse Resp BP Pulse Ox 79 F L 79 18 121/72 100 10/13/16 09:57 10/13/16 09:57 10/13/16 09:57 10/13/16 09:57 10/13/16 09:57 Intake & Output 10/12/16 10/13/16 10/14/16 06:59 06:59 06:59 Intake Total 480 2300 Output Total 5584 Balance 480 -9095 Weight 120.1 kg General appearance: PRESENT: no acute distress, well-developed, well-nourished Head exam: PRESENT: atraumatic, normocephalic Eye exam: PRESENT: conjunctiva pink, EOMI, PERRLA. ABSENT: scleral icterus Ear exam: PRESENT: normal external ear exam Mouth exam: PRESENT: moist, tongue midline Teeth exam: PRESENT: poor dentation Neck exam: PRESENT: full ROM. ABSENT: carotid bruit, JVD, lymphadenopathy, thyromegaly Cardiovascular exam: PRESENT: RRR. ABSENT: diastolic murmur, rubs, systolic murmur Pulses: PRESENT: normal dorsalis pedis pul, +2 pedal pulses bilateral Vascular exam: PRESENT: normal capillary refill GI/Abdominal exam: PRESENT: normal bowel sounds, soft. ABSENT: distended, guarding, mass, organolmegaly, rebound, tenderness Rectal exam: PRESENT: deferred Musculoskeletal exam: PRESENT: other - right hand- no tenderness to palpation of the fourth metacarpal or along the thenar eminence. previous bite wounds healed no evidence of drainage. previous erythema significantly resolved minimal residual swelling. no tenderness on the flexor sheath. patient able to make full composite fist. no sensory deficits. Neurological exam: PRESENT: alert, awake, oriented to person, oriented to place , oriented to time, oriented to situation, CN II-XII grossly intact. ABSENT: motor sensory deficit Psychiatric exam: PRESENT: appropriate affect, normal mood. ABSENT: homicidal ideation, suicidal ideation Skin exam: PRESENT: dry, intact, warm. ABSENT: cyanosis, rash Results Laboratory Results: 10/13/16 04:18 10/13/16 04:18 WBC 9.2 RBC 4.66 Hgb 13.3 L Hct 38.7 MCV 83 MCH 28.6 MCHC 34.5 RDW 13.3 Plt Count 279 Seg Neutrophils % 60.1 Lymphocytes % 30.7 Monocytes % 5.0 Eosinophils % 3.7 Basophils % 0.5 Absolute Neutrophils 5.6 Absolute Lymphocytes 2.8 Absolute Monocytes 0.5 Absolute Eosinophils 0.3 Absolute Basophils 0.0 Impressions: Upper Extremity MRI 10/11/16 15:19 IMPRESSION: MR FINDINGS COMPATIBLE WITH CELLULITIS WITH 9 MM SOFT TISSUE ABSCESS COULD DORSAL TO THE 4TH METACARPAL HEAD. NO ACUTE OSSEOUS ABNORMALITY. Plan Discharge Plan: patient has done well with conservative treatment. at this point he will be discharged home on percocet to take as needed for pain he will restart his augmentin as previously prescribed. he will follow up with the emergency room for rabies prophylactic treatment. patient is to return to emergency days increasing redness swelling or pain of the hand. patient was ready to instructions, understood the above instructions and orthopedic stable to discharge to home.
--- NOTE | 2016-10-13 16:39 | PDOC PROGRESS REPORT ---
Subjective Progress Note for:: 10/13/16 Subjective:: The patient was seen earlier today on rounds. The patient denies any nausea, vomiting, diarrhea, shortness of breath, dizziness, chest pain, heart palpitations, fevers, or chills. The patient has remained afebrile. Blood pressures have been in a good range. When prompted the patient voices no other concerns at this time. Review of systems: The rest of the review of systems is negative. Physical Exam Vital Signs: Temp Pulse Resp BP Pulse Ox 79 F L 79 18 121/72 100 10/13/16 09:57 10/13/16 09:57 10/13/16 09:57 10/13/16 09:57 10/13/16 09:57 Intake & Output 10/11/16 10/12/16 10/13/16 23:59 23:59 23:59 Intake Total 480 1360 940 Output Total 3100 2425 Balance 480 -1740 -1485 Weight 120.1 kg General appearance: PRESENT: no acute distress, cooperative, well-developed, well-nourished Head exam: PRESENT: atraumatic, normocephalic Eye exam: PRESENT: conjunctiva pink, EOMI, PERRLA. ABSENT: scleral icterus Ear exam: PRESENT: normal external ear exam Mouth exam: PRESENT: moist, tongue midline Neck exam: ABSENT: carotid bruit, JVD, lymphadenopathy, thyromegaly Respiratory exam: PRESENT: clear to auscultation trinity. ABSENT: rales, rhonchi, wheezes Cardiovascular exam: PRESENT: RRR. ABSENT: diastolic murmur, rubs, systolic murmur Pulses: PRESENT: normal dorsalis pedis pul Vascular exam: PRESENT: normal capillary refill GI/Abdominal exam: PRESENT: normal bowel sounds, soft. ABSENT: distended, guarding, mass, organolmegaly, rebound, tenderness Rectal exam: PRESENT: deferred Extremities exam: PRESENT: full ROM, other - Hand is much improved. ABSENT: calf tenderness, clubbing, pedal edema Neurological exam: PRESENT: alert, awake, oriented to person, oriented to place , oriented to time, oriented to situation, CN II-XII grossly intact. ABSENT: motor sensory deficit Psychiatric exam: PRESENT: appropriate affect, normal mood. ABSENT: homicidal ideation, suicidal ideation Skin exam: PRESENT: dry, intact, warm. ABSENT: cyanosis, rash Results Laboratory Results: 10/13/16 04:18 10/13/16 04:18 WBC 9.2 RBC 4.66 Hgb 13.3 L Hct 38.7 MCV 83 MCH 28.6 MCHC 34.5 RDW 13.3 Plt Count 279 Seg Neutrophils % 60.1 Lymphocytes % 30.7 Monocytes % 5.0 Eosinophils % 3.7 Basophils % 0.5 Absolute Neutrophils 5.6 Absolute Lymphocytes 2.8 Absolute Monocytes 0.5 Absolute Eosinophils 0.3 Absolute Basophils 0.0 Impressions: Upper Extremity MRI 10/11/16 15:19 IMPRESSION: MR FINDINGS COMPATIBLE WITH CELLULITIS WITH 9 MM SOFT TISSUE ABSCESS COULD DORSAL TO THE 4TH METACARPAL HEAD. NO ACUTE OSSEOUS ABNORMALITY. Assessment & Plan - Diagnosis (1) Abscess of hand Is this a current diagnosis for this admission?: YesPlan: Management as per orthopedics agree with current antibiotic coverage (2) Cat bite Qualifiers: Encounter type: subsequent encounter Qualified Code(s): W55.01XD - Bitten by cat, subsequent encounter Is this a current diagnosis for this admission?: YesPlan: It's critical for you to follow the exact schedule of immunizations. After the first shot, we give repeat doses in 3 days, 7 days, 14 days, and 28 days. The repeat doses can also be given through the [facility] or by special arrangement with your doctor. Will administer dosage today. (3) Cat bite of right hand Qualifiers: Encounter type: initial encounter Qualified Code(s): S61.451A - Open bite of right hand, initial encounter; W55.01XA - Bitten by cat, initial encounter (4) Bipolar disorder Qualifiers: Active/Remission status: remission status unspecified Qualified Code (s): F31.9 - Bipolar disorder, unspecified Is this a current diagnosis for this admission?: YesPlan: The patient overall appears stable will continue the patient's home medications. - Time Time Spent with patient: 25-34 minutes Medications reviewed and adjusted accordingly: Yes
== END 2016-10-13 10:41 | disposition home or self-care (01) | DRG 949 ==
LOC: ER 13:08 → EH 19:43 → UNDOADMIN 19:43 → EH 20:02 → 4N 21:53
PROVIDERS: ADMIT Orthopaedic Surgery; ATTEND Orthopaedic Surgery
PROC: 3E0234Z Introduction of Serum, Toxoid and Vaccine into Muscle, Percutaneous Approach (ICD-10-PCS; principal; 2016-10-13)
DX: S61.451D Open bite of right hand, subsequent encounter (principal); L03.113 Cellulitis of right upper limb; N18.9 Chronic kidney disease, unspecified; J45.909 Unspecified asthma, uncomplicated; G43.909 Migraine, unspecified, not intractable, without status migrainosus; F90.9 Attention-deficit hyperactivity disorder, unspecified type; F31.9 Bipolar disorder, unspecified; W55.01XD Bitten by cat, subsequent encounter; Z23 Encounter for immunization; Z88.1 Allergy status to other antibiotic agents; Z88.8 Allergy status to other drugs, medicaments and biological substances
CPT/HCPCS: 36415; 80053; 85025; 85652; 86140; 87040; 90715; 99285; A9576; J0295; J2270; J3490

== ENCOUNTER → 2017-01-28 | Outpatient (CLI) | payer MEDICAID ==
[2017-01-28 11:41] LABS: ABSOLUTE BASOPHILS # (AUTO) 0.1 10^3/uL (0.0-0.2); ABSOLUTE EOSINOPHILS # (AUTO) 0.2 10^3/uL (0.0-0.6); ABSOLUTE LYMPHOCYTES (AUTO) 2.9 10^3/uL (0.5-4.7); ABSOLUTE MONOCYTES (AUTO) 0.6 10^3/uL (0.1-1.4); ABSOLUTE NEUT (AUTO) 5.6 10^3/uL (1.7-8.2); BASOPHILS % (AUTO) 0.8 % (0-2); EOSINOPHILS % (AUTO) 2.1 % (0-6); HEMATOCRIT 43.3 % (37.9-51.0); HEMOGLOBIN 15.2 g/dL (13.5-17.0); HGB HCT DIFFERENCE 2.3; LYMPHOCYTES % (AUTO) 30.7 % (13-45); MEAN CORPUSCULAR HEMOGLOBIN 29.1 pg (27.0-33.4); MEAN CORPUSCULAR HGB CONC 35.1 g/dL (32.0-36.0); MEAN CORPUSCULAR VOLUME 83 fl (80-97); MONOCYTES % (AUTO) 6.5 % (3-13); RED BLOOD COUNT 5.22 10^6/uL (4.35-5.55); RED CELL DISTRIBUTION WIDTH 13.4 % (11.5-14.0); SEGMENTED NEUTROPHILS % (AUTO) 59.9 % (42-78); WHITE BLOOD COUNT 9.4 10^3/uL (4.0-10.5)
[2017-01-28 11:53] LABS: CHOLESTEROL 163.37 mg/dL (0-200); Direct HDL 34 mg/dL (>40); TRIGLYCERIDES 302 mg/dL (<150)
[2017-01-28 12:04] LABS: DIRECT LDL 104 mg/dL (<100)
[2017-01-28 12:07] LABS: VLDL CHOLESTEROL 60.4 mg/dL (10-31)
== END ==
LOC: OD 10:03
PROVIDERS: ATTEND Nurse Practitioner Psychiatric/Mental Health
DX: F41.1 Generalized anxiety disorder (principal); Z79.899 Other long term (current) drug therapy
CPT/HCPCS: 36415; 80061; 83036; 85025

== ENCOUNTER → 2017-07-13 | Outpatient (CLI) | payer MEDICAID ==
[2017-07-13 11:35] LABS: ABSOLUTE BASOPHILS # (AUTO) 0.1 10^3/uL (0.0-0.2); ABSOLUTE EOSINOPHILS # (AUTO) 0.1 10^3/uL (0.0-0.6); ABSOLUTE LYMPHOCYTES (AUTO) 2.2 10^3/uL (0.5-4.7); ABSOLUTE MONOCYTES (AUTO) 0.5 10^3/uL (0.1-1.4); ABSOLUTE NEUT (AUTO) 7.1 10^3/uL (1.7-8.2); BASOPHILS % (AUTO) 0.7 % (0-2); HEMATOCRIT 46.2 % (37.9-51.0); HEMOGLOBIN 15.7 g/dL (13.5-17.0); LYMPHOCYTES % (AUTO) 22.2 % (13-45); MEAN CORPUSCULAR HEMOGLOBIN 27.5 pg (27.0-33.4); MEAN CORPUSCULAR HGB CONC 33.9 g/dL (32.0-36.0); MEAN CORPUSCULAR VOLUME 81 fl (80-97); MONOCYTES % (AUTO) 5.1 % (3-13); RED CELL DISTRIBUTION WIDTH 13.8 % (11.5-14.0); TOTAL CELLS COUNTED % (AUTO) 100 %
[2017-07-13 11:53] LABS: ALANINE AMINOTRANSFERASE 30 U/L (21-72); ALBUMIN 4.7 g/dL (3.5-5.0); ALKALINE PHOSPHATASE 90 U/L (38-126); ANION GAP 17 (5-19); ASPARTATE AMINO TRANSFERASE 19 U/L (17-59); BILIRUBIN,DIRECT 0.3 mg/dL (0.0-0.4); BILIRUBIN,TOTAL 0.5 mg/dL (0.2-1.3); BLOOD UREA NITROGEN 12 mg/dL (7-20); CALCIUM 10.4 mg/dL (8.4-10.2); CARBON DIOXIDE 21 mmol/L (22-30); CHLORIDE 108 mmol/L (98-107); CHOLESTEROL 152.39 mg/dL (0-200); GLUCOSE 95 mg/dL (75-110); POTASSIUM 4.7 mmol/L (3.6-5.0); SODIUM 146.2 mmol/L (137-145); TOTAL PROTEIN 7.8 g/dL (6.3-8.2); TRIGLYCERIDES 63 mg/dL (<150)
[2017-07-13 12:01] LABS: PLATELET COUNT 291 10^3/uL (150-450)
[2017-07-13 12:04] LABS: DIRECT LDL 109 mg/dL (<100)
[2017-07-13 12:13] LABS: FREE T4 (FREE THYROXINE) 1.42 ng/dL (0.78-2.19)
[2017-07-13 12:28] LABS: THYROID STIMULATING HORMONE 1.01 uIU/mL (0.47-4.68)
== END ==
LOC: OD 10:09
PROVIDERS: ATTEND Nurse Practitioner Psychiatric/Mental Health
DX: F63.81 Intermittent explosive disorder (principal); F41.1 Generalized anxiety disorder; Z79.899 Other long term (current) drug therapy
CPT/HCPCS: 36415; 80053; 80061; 80164; 83036; 84439; 84443; 85025

== ENCOUNTER 2018-07-02 19:10 | Emergency (ER) | payer MEDICAID ==
[2018-07-02] MEDS ORDERED: IBUPROFEN 600 MG TABLET PO ONE (20:08)
--- NOTE | 2018-07-02 20:09 | ER Document Report ---
ED Medical Screen (RME) - General Chief Complaint: Fever Stated Complaint: FEVER Time Seen by Provider: 07/02/18 20:06 TRAVEL OUTSIDE OF THE [place] IN LAST 30 DAYS: No - HPI Notes: 07/02/18 20:08 Patient is a 23-year-old male that presents to the emergency department for chief complaint of fever and cough. Patient started having fevers yesterday. He has been getting Tylenol and ibuprofen. His last dose of Tylenol was at 6:30 PM his last dose of Motrin was at 3:30 PM. Patient is also having a cough. He denies any nausea vomiting or diarrhea. He did not get a flu shot this year. ROS: GENERAL: Fevers CV: Denies chest pain PHYSICAL EXAMINATION: GENERAL: Well-appearing, well-nourished and in no acute distress. HEAD: Atraumatic, normocephalic. EYES: Pupils equal round extraocular movements intact, conjunctiva are normal. ENT: Nares patent NECK: Normal range of motion LUNGS: No respiratory distress Musculoskeletal: Normal range of motion NEUROLOGICAL: Normal speech, normal gait. PSYCH: Normal mood, normal affect. MDM: Patient seen and examined for rapid initial assessment. Vital signs reviewed. A comprehensive ED assessment and evaluation of the patient, analysis of test results and completion of the medical decision making process will be conducted by additional ED providers. - Related Data Allergies/Adverse Reactions: cephalexin monohydrate [From Keflex] Allergy (Intermediate, Verified 10/10/16 13:33) Hives clindamycin HCl [From Cleocin] Allergy (Intermediate, Verified 10/10/16 13:33) Hives hydromorphone HCl [From Dilaudid] Allergy (Verified 10/10/16 13:33) Past Medical History - Past Medical History Cardiac Medical History: Denies: Hx Coronary Artery Disease, Hx Heart Attack, Hx Hypertension Pulmonary Medical History: Reports: Hx Asthma Denies: Hx Bronchitis, Hx COPD, Hx Pneumonia Neurological Medical History: Reports: Hx Migraine. Denies: Hx Cerebrovascular Accident, Hx Seizures Renal/ Medical History: Denies: Hx Peritoneal Dialysis Musculoskeltal Medical History: Denies Hx Arthritis Skin Medical History: Reports Hx Cellulitis Psychiatric Medical History: Reports: Hx Attention Deficit Hyperactivity Disorder, Hx Bipolar Disorder, Hx Depression Past Surgical History: Reports: Hx Cholecystectomy, Hx Thyroid Surgery - radioactive ablation - Immunizations Hx Diphtheria, Pertussis, Tetanus Vaccination: Yes Physical Exam - Vital signs Vitals: Temp Pulse Resp BP Pulse Ox 102.6 F H 123 H 20 176/88 H 99 07/02/18 19:22 07/02/18 19:22 07/02/18 19:22 07/02/18 19:22 07/02/18 19:22 Course - Vital Signs Vital signs: Temp Pulse Resp BP Pulse Ox 102.6 F H 123 H 20 176/88 H 99 07/02/18 19:22 07/02/18 19:22 07/02/18 19:22 07/02/18 19:22 07/02/18 19:22 Doctor's Discharge - Discharge Referrals: TAQUERIA VAZQUEZ NP [Primary Care Provider] - Follow up as needed
--- NOTE | 2018-07-02 20:58 | RADIOLOGY REPORT (SQ) ---
EXAM DESCRIPTION: CHEST SINGLE VIEW COMPLETED DATE/TIME: 07/02/2018 8:50 pm REASON FOR STUDY: cough COMPARISON: 05/20/2016 EXAM PARAMETERS: NUMBER OF VIEWS: One view. TECHNIQUE: Single frontal radiographic view of the chest acquired. RADIATION DOSE: NA LIMITATIONS: None. FINDINGS: LUNGS AND PLEURA: No opacities, masses or pneumothorax. No pleural effusion. MEDIASTINUM AND HILAR STRUCTURES: No masses. Contour normal. HEART AND VASCULAR STRUCTURES: Heart normal in size. Normal vasculature. BONES: No acute findings. HARDWARE: None in the chest. OTHER: No other significant finding. IMPRESSION: NO ACUTE RADIOGRAPHIC FINDING IN THE CHEST. TECHNICAL DOCUMENTATION: JOB ID: [id number] [employer]- All Rights Reserved Reading location - IP/workstation name: [email or web address]
[2018-07-02 21:45] LABS: A TYPE INFLUENZA AG NEGATIVE (NEGATIVE); B INFLUENZA AG NEGATIVE (NEGATIVE)
[2018-07-02] MEDS ORDERED: ACETAMINOPHEN 325 MG TABLET PO ONE (22:08)
--- NOTE | 2018-07-02 22:11 | ER Document Report ---
ED General - General Chief Complaint: Fever Stated Complaint: FEVER Time Seen by Provider: 07/02/18 20:06 Notes: Patient is a 23-year-old male without chronic medical problems presents with 2 days of sore throat, cough and fever. Mother states that she brought the patient to the emergency department today due to the degree of his temperature elevation. He states he felt very warm to the touch, she checked it and found to be 104 F prompting her to bring him to the emergency department. Multiple sick contacts in the home with similar symptoms including the uncle as well as a small child. The patient did not receive an influenza vaccine this year. Patient himself states that he otherwise feels relatively okay. Nothing seems to improve or worsen his symptoms. He has not seen his general physician regarding today's concerns. No history of similar symptoms in the recent past. He denies any headache, neck pain, limited range of neck motion, abdominal pain, vomiting or diarrhea although does note that he has felt somewhat nauseated. TRAVEL OUTSIDE OF THE [place] IN LAST 30 DAYS: No - Related Data Allergies/Adverse Reactions: cephalexin monohydrate [From Keflex] Allergy (Intermediate, Verified 10/10/16 13:33) Hives clindamycin HCl [From Cleocin] Allergy (Intermediate, Verified 10/10/16 13:33) Hives hydromorphone HCl [From Dilaudid] Allergy (Verified 10/10/16 13:33) Past Medical History - General Information source: Patient - Social History Smoking Status: Never Smoker Chew tobacco use (# tins/day): Yes Frequency of alcohol use: None Drug Abuse: None Lives with: Family Family History: CAD, COPD, CVA, DM, Hyperlipidemia, Hypertension, Malignancy, Thyroid Disfunction Patient has suicidal ideation: No Patient has homicidal ideation: No - Past Medical History Cardiac Medical History: Denies: Hx Coronary Artery Disease, Hx Heart Attack, Hx Hypertension Pulmonary Medical History: Reports: Hx Asthma Denies: Hx Bronchitis, Hx COPD, Hx Pneumonia Neurological Medical History: Reports: Hx Migraine. Denies: Hx Cerebrovascular Accident, Hx Seizures Renal/ Medical History: Denies: Hx Peritoneal Dialysis Musculoskeletal Medical History: Denies Hx Arthritis Skin Medical History: Reports Hx Cellulitis Psychiatric Medical History: Reports: Hx Attention Deficit Hyperactivity D isorder, Hx Bipolar Disorder, Hx Depression Past Surgical History: Reports: Hx Cholecystectomy, Hx Thyroid Surgery - radioactive ablation - Immunizations Hx Diphtheria, Pertussis, Tetanus Vaccination: Yes Hx Pneumococcal Vaccination: 06/22/12 Review of Systems - Review of Systems Notes: Constitutional: Positive for fever. HENT: Positive for sore throat. Eyes: Negative for visual changes. Cardiovascular: Negative for chest pain. Respiratory: Negative for shortness of breath, positive for cough. Gastrointestinal: Negative for abdominal pain, vomiting or diarrhea. Genitourinary: Negative for dysuria. Musculoskeletal: Negative for back pain. Skin: Negative for rash. Neurological: Negative for headaches, weakness or numbness. 10 point ROS negative except as marked above and in HPI. Physical Exam - Vital signs Vitals: Temp Pulse Resp BP Pulse Ox 102.6 F H 123 H 20 176/88 H 99 07/02/18 19:22 07/02/18 19:22 07/02/18 19:22 07/02/18 19:22 07/02/18 19:22 Interpretation: Hypertensive, Tachycardic, Febrile Notes: PHYSICAL EXAMINATION: GENERAL: Well-appearing, well-nourished and in no acute distress. HEAD: Atraumatic, normocephalic. EYES: Pupils equal round and reactive to light, extraocular movements intact, sclera anicteric, conjunctiva are normal. ENT: nares patent, oropharynx clear without exudates. Moderately dry mucous membranes. NECK: Normal range of motion, supple without lymphadenopathy LUNGS: Breath sounds clear to auscultation bilaterally and equal. No wheezes rales or rhonchi. HEART: Regular tachycardia without murmurs ABDOMEN: Soft, nontender, normoactive bowel sounds. No guarding, no rebound. No masses appreciated. EXTREMITIES: Normal range of motion, no pitting or edema. No cyanosis. NEUROLOGICAL: No focal neurological deficits. Moves all extremities spontaneously and on command. PSYCH: Normal mood, normal affect. SKIN: Warm, Dry, normal turgor, no rashes or lesions noted. Course - Re-evaluation Re-evalutation: 07/02/18 22:08 Patient presents with cough, sore throat, and fever at home consistent with a flulike illness although our flu test here is negative. Clinical history and exam is not consistent with an acute bacterial meningitis, encephalitis, pneumonia, there is no evidence of a cellulitis on examination. Patient likewise denies any urinary symptoms. Chest x-ray is clear without any evidence of an acute pneumonia. Patient does not have any focal abdominal tenderness to suggest an acute biliary pathology, acute appendicitis, acute mesenteric ischemia, bowel obstruction, bowel, or any other life-threatening acute intra- abdominal pathology as the etiology of the fever and additional symptoms today. Patient is tolerated oral intake without difficulty. Patient is overall very well in appearance of my assessment, actually chewing tobacco. Vitals at time of reassessment improved from triage. At this time will discharge with return precautions and follow-up recommendations. Verbal discharge instructions given a the bedside and opportunity for questions given. Medication warnings reviewed. Patient/family is in agreement with this plan and has verbalized understanding of return precautions and the need for primary care follow-up in the next 24-72 hours. - Vital Signs Vital signs: Temp Pulse Resp BP Pulse Ox 100.6 F H 109 H 20 134/89 H 98 07/02/18 22:50 07/02/18 22:50 07/02/18 19:22 07/02/18 22:50 07/02/18 22:50 - Diagnostic Test Radiology reviewed: Image reviewed, Reports reviewed Radiology results interpreted by me: 07/02/18 22:10 Chest x-ray: No acute infiltrate or pneumothorax Discharge - Discharge Clinical Impression: Cough Fever Qualifiers: Fever type: unspecified Qualified Code(s): R50.9 - Fever, unspecified Condition: Good Disposition: HOME, SELF-CARE Additional Instructions: Your symptoms are likely due to a viral infection either influenza or similar virus. The only treatment at this time is supportive care including drinking plenty of fluids, Tylenol and ibuprofen, as well as nausea medicines which you will be sent home with. Your symptoms will likely last for 7-10 days. Please return to the emergency department immediately if you become confused, have persistent vomiting, pass out, have severe headache, or have any other symptoms that are worrisome to you. Follow-up with your primary care doctor in the next several days. Referrals: TAQUERIA VAZQUEZ NP [NO LOCAL MD] - Follow up as needed
[2018-07-02 22:52] VITALS: BP 134/89
== END 2018-07-02 23:02 | disposition home or self-care (01) ==
LOC: ER 19:10
DX: R50.9 Fever, unspecified (principal); J02.9 Acute pharyngitis, unspecified; R05 Cough; R11.0 Nausea; J45.909 Unspecified asthma, uncomplicated; R00.0 Tachycardia, unspecified; Z72.0 Tobacco use; Z88.1 Allergy status to other antibiotic agents; Z88.5 Allergy status to narcotic agent
CPT/HCPCS: 99283; 87804; 71045; J3490 ×2

== ENCOUNTER → 2019-01-27 | Outpatient (CLI) | payer MEDICAID ==
[2019-01-27 17:36] LABS: ABSOLUTE BASOPHILS # (AUTO) 0.1 10^3/uL (0.0-0.2); ABSOLUTE EOSINOPHILS # (AUTO) 0.1 10^3/uL (0.0-0.6); ABSOLUTE MONOCYTES (AUTO) 0.7 10^3/uL (0.1-1.4); ABSOLUTE NEUT (AUTO) 6.3 10^3/uL (1.7-8.2); BASOPHILS % (AUTO) 0.7 % (0-2); EOSINOPHILS % (AUTO) 0.9 % (0-6); HEMATOCRIT 42.4 % (37.9-51.0); HEMOGLOBIN 14.4 g/dL (13.5-17.0); LYMPHOCYTES % (AUTO) 29.7 % (13-45); MEAN CORPUSCULAR HEMOGLOBIN 28.1 pg (27.0-33.4); MEAN CORPUSCULAR VOLUME 83 fl (80-97); MONOCYTES % (AUTO) 6.9 % (3-13); PLATELET COUNT 312 10^3/uL (150-450); RED BLOOD COUNT 5.13 10^6/uL (4.35-5.55); RED CELL DISTRIBUTION WIDTH 13.6 % (11.5-14.0); SEGMENTED NEUTROPHILS % (AUTO) 61.8 % (42-78); TOTAL CELLS COUNTED % (AUTO) 100 %; WHITE BLOOD COUNT 10.2 10^3/uL (4.0-10.5)
[2019-01-27 17:57] LABS: BLOOD UREA NITROGEN 10 mg/dL (7-20); CALCIUM 9.7 mg/dL (8.4-10.2); GLUCOSE 92 mg/dL (75-110)
[2019-01-27 17:58] LABS: ALBUMIN 4.6 g/dL (3.5-5.0); ALKALINE PHOSPHATASE 87 U/L (38-126); ANION GAP 12 (5-19); ASPARTATE AMINO TRANSFERASE 34 U/L (17-59); BILIRUBIN,DIRECT 0.2 mg/dL (0.0-0.4); BILIRUBIN,TOTAL 0.5 mg/dL (0.2-1.3); CARBON DIOXIDE 22 mmol/L (22-30); CHLORIDE 107 mmol/L (98-107); CHOLESTEROL 181.46 mg/dL (0-200); POTASSIUM 4.5 mmol/L (3.6-5.0); TOTAL PROTEIN 7.6 g/dL (6.3-8.2); TRIGLYCERIDES 351 mg/dL (<150)
[2019-01-27 18:09] LABS: DIRECT LDL 120 mg/dL (<100)
[2019-01-27 18:12] LABS: VLDL CHOLESTEROL 70.2 mg/dL (10-31)
[2019-01-27 18:15] LABS: FREE T4 (FREE THYROXINE) 1.02 ng/dL (0.78-2.19)
[2019-01-27 18:29] LABS: THYROID STIMULATING HORMONE 2.66 uIU/mL (0.47-4.68)
== END ==
LOC: OD 17:05
PROVIDERS: ATTEND Nurse Practitioner Psychiatric/Mental Health
DX: Z79.899 Other long term (current) drug therapy (principal); F41.1 Generalized anxiety disorder
CPT/HCPCS: 36415; 80053; 80061; 80164; 83036; 84439; 84443; 85025

== ENCOUNTER → 2020-01-19 | Outpatient (CLI) | payer MEDICAID ==
[2020-01-19 12:48] LABS: ABSOLUTE BASOPHILS # (AUTO) 0.1 10^3/uL (0.0-0.2); ABSOLUTE EOSINOPHILS # (AUTO) 0.1 10^3/uL (0.0-0.6); ABSOLUTE LYMPHOCYTES (AUTO) 3.1 10^3/uL (0.5-4.7); ABSOLUTE MONOCYTES (AUTO) 0.5 10^3/uL (0.1-1.4); ABSOLUTE NEUT (AUTO) 4.8 10^3/uL (1.7-8.2); BASOPHILS % (AUTO) 0.7 % (0-2); EOSINOPHILS % (AUTO) 1.6 % (0-6); HEMATOCRIT 45.2 % (37.9-51.0); HEMOGLOBIN 15.2 g/dL (13.5-17.0); LYMPHOCYTES % (AUTO) 36.3 % (13-45); MEAN CORPUSCULAR HEMOGLOBIN 27.9 pg (27.0-33.4); MEAN CORPUSCULAR HGB CONC 33.6 g/dL (32.0-36.0); MEAN CORPUSCULAR VOLUME 83 fl (80-97); PLATELET COUNT 299 10^3/uL (150-450); RED BLOOD COUNT 5.44 10^6/uL (4.35-5.55); RED CELL DISTRIBUTION WIDTH 14.1 % (11.5-14.0); SEGMENTED NEUTROPHILS % (AUTO) 55.4 % (42-78); TOTAL CELLS COUNTED % (AUTO) 100 %; WHITE BLOOD COUNT 8.6 10^3/uL (4.0-10.5)
[2020-01-19 13:06] LABS: ALBUMIN 4.5 g/dL (3.5-5.0); ALKALINE PHOSPHATASE 91 U/L (38-126); ANION GAP 13 (5-19); ASPARTATE AMINO TRANSFERASE 70 U/L (17-59); BILIRUBIN,TOTAL 0.4 mg/dL (0.2-1.3); BLOOD UREA NITROGEN 11 mg/dL (7-20); CALCIUM 9.7 mg/dL (8.4-10.2); CARBON DIOXIDE 23 mmol/L (22-30); CHLORIDE 105 mmol/L (98-107); GLUCOSE 106 mg/dL (75-110); POTASSIUM 4.4 mmol/L (3.6-5.0); TOTAL PROTEIN 7.9 g/dL (6.3-8.2)
[2020-01-19 13:21] LABS: FREE T4 (FREE THYROXINE) 1.48 ng/dL (0.78-2.19)
[2020-01-19 13:35] LABS: THYROID STIMULATING HORMONE 5.55 uIU/mL (0.47-4.68)
== END ==
LOC: OD 11:48
PROVIDERS: ATTEND Nurse Practitioner Psychiatric/Mental Health
DX: F41.1 Generalized anxiety disorder (principal); Z79.899 Other long term (current) drug therapy
CPT/HCPCS: 36415; 80053; 80164; 83036; 84439; 84443; 85025